=== PATIENT | female | born 1960 | race Caucasian/White ===

== ENCOUNTER 2020-07-10 10:26 | Outpatient (REF) | payer BC, SELFPAY ==
--- NOTE | 2020-07-10 10:20 | VAG_PTH ---
PATIENT: ALEXSANDRA AGUSTIN LOC: N U#:[id number] AGE/SX: 59/F ROOM: RE07/10/[address]: Jennifer Benitez : 1960 BED: DIS: 07/10/2020 SPEC #: [id number] RECD: 07/10/20 12:44 STATUS: ELMER REQ #: [id number] FILIPPO: 07/10/20 10:[address]: Jennifer Benitez DEPT: Surgical Specimen RECD BY: Natalia Hensley ENTERED: 07/10/20 12:44 SP TYPE: VAG OTHR DR: None Tissues: 1 - VAGINAL BIOPSY Procedures: GROSS AND MICRO LEVEL 4 IMMUNOPEROXIDASE STAIN P16 IPEX Comments: [id number]
== END 2020-07-10 10:46 ==
LOC: LBN 10:26
PROVIDERS: Visit Provider Obstetrics & Gynecology Gynecology
DX: N89.0 Mild vaginal dysplasia (principal); Z87.42 Personal history of other diseases of the female genital tract; Z90.710 Acquired absence of both cervix and uterus
CPT/HCPCS: 88305; 88342; 88361